=== PATIENT | female | born 1935 | race Caucasian/White ===

== ENCOUNTER 2016-10-03 18:15 | Emergency (ER) | payer MEDICARE, BC ==
[~2016-10-03] VITALS: Ht 162.6 cm; Wt 63.5 kg
[2016-10-03] MEDS ORDERED: ACETAMINOPHEN 325 MG TAB PO ONE (18:45)
[2016-10-03 19:15] LABS: Basophils # (auto) 0 uL; Basophils % (auto) 0.3 % (0.0-2.0); CONDITION Y; Eosinophils # (auto) 0.3 uL; Eosinophils % (auto) 1.9 % (0.0-7.0); Hematocrit 33.8 % (36.0-46.0); Lymphocytes # (auto) 2.2 uL; Lymphocytes % (auto) 16.2 % (10.0-50.0); Mean Corpuscular Hemoglobin 31.9 pg (28.0-32.0); Mean Corpuscular Hgb Conc. 32.5 g/dL (32.0-36.0); Mean Corpuscular Volume 98.2 fL (80.0-100.0); Monocytes # (auto) 1.2 uL; Monocytes % (auto) 9.2 % (0.0-12.0); Neutrophils # (auto) 9.6 uL; Neutrophils % (auto) 72.4 % (37.0-80.0); Platelet Count (auto) 307 10^3/uL (140-450); Red Cell Distribution Width 14.4 % (11.6-16.0); SUSPECT SEE PRINTOUT; White Blood Cell 13.2 10^3/uL (4.4-10.8)
[2016-10-03 19:29] LABS: INR 0.92 (0.9-1.15); Partial Thromboplastin Time 29.9 sec (22.64-33.71)
[2016-10-03 19:37] LABS: Albumin 2.8 g/dL (3.4-5.0); BUN/Creatinine Ratio 34.5; Calcium 8.2 mg/dL (8.5-10.1)
[2016-10-03 19:38] LABS: Lactic Acid w/Reflex 2.5 mmol/L (0.4-2.0)
[2016-10-03 19:44] LABS: Bilirubin, Total 0.5 mg/dL (0.2-1.0); Total Protein 6.9 g/dL (6.4-8.2)
[2016-10-03 19:56] LABS: Potassium 4.1 mmol/L (3.5-5.1)
[2016-10-03] MEDS ORDERED: SODIUM CHLORIDE 0.9% 1,000 ML IV ONE ×2 (20:00→21:00)
[2016-10-03] MEDS ORDERED: cefTRIAXone 1GM/50ML D5W 50 ML IV ONE (20:00)
[2016-10-03 20:11] LABS: REFLEX LACTIC ACID YES OR NO YES
[2016-10-03 20:54] LABS: Urine Bilirubin Negative (Negative); Urine Blood Negative /uL (Negative); Urine Color Yellow (Yellow); Urine Glucose Normal (Normal); Urine Ketone Negative (Negative); Urine Mucus FEW (None Seen); Urine RBC 1 /hpf (0 - 4); Urine Squamous Epithelial Cell FEW /hpf (<5); Urine Urobilinogen Normal (Negative)
[2016-10-03 20:55] LABS: Urine Nitrite POSITIVE (Negative)
[2016-10-03 23:41] VITALS: BP 150/50
== END 2016-10-03 23:40 | disposition home or self-care (01) ==
LOC: EDBD 18:15 → ER 18:22
DX: N39.0 Urinary tract infection, site not specified (principal); R33.9 Retention of urine, unspecified; G82.20 Paraplegia, unspecified; I50.9 Heart failure, unspecified; E11.9 Type 2 diabetes mellitus without complications; I11.0 Hypertensive heart disease with heart failure; I25.2 Old myocardial infarction; E78.5 Hyperlipidemia, unspecified; Z90.49 Acquired absence of other specified parts of digestive tract; Z90.710 Acquired absence of both cervix and uterus
CPT/HCPCS: 36415; 51702; 71010; 80053; 81001; 83605; 84484; 85025; 85610; 85730; 87040; 96365; 99285; J0696; J7030

== ENCOUNTER 2017-11-14 11:47 | Inpatient (IN) | payer MEDICARE, BC ==
[2017-11-14] VITALS (21 sets, daily range): BP systolic 118–158; BP diastolic 61–87
[~2017-11-14] VITALS: Ht 162.6 cm; Wt 64.0 kg
[2017-11-14] MEDS ORDERED: SUCCINYLCHOLINE CHLORIDE 20 MG/ML 10ML VIAL IV ONE ×2 (12:45)
[2017-11-14] MEDS ORDERED: ETOMIDATE (2MG/ML) 20ML VIAL IV ONE ×2 (12:45)
[2017-11-14] MEDS ORDERED: MIDAZOLAM DRIP 50 mg/50mL 50 ML IV ONE (12:58)
[2017-11-14] MEDS: MIDAZOLAM DRIP 50 mg/50mL 50 ML IV SCH (13:06)
[2017-11-14] MEDS ORDERED: NOREPINEPHRINE 8 MG/250ML KIT 250 ML IV ONE (13:11)
[2017-11-14] MEDS: NOREPINEPHRINE 8 MG/250ML KIT 250 ML IV SCH ×2 (13:34→22:54)
[2017-11-14 13:54] LABS: Basophils # (auto) 0.1 uL; Basophils % (auto) 0.7 % (0.0-2.0); Eosinophils # (auto) 0.1 uL; Eosinophils % (auto) 0.4 % (0.0-7.0); Hematocrit 41.5 % (36.0-46.0); Hemoglobin 12.8 g/dL (12.2-16.2); Lymphocytes # (auto) 0.8 uL; Lymphocytes % (auto) 5.1 % (10.0-50.0); Mean Corpuscular Hemoglobin 31.6 pg (28.0-32.0); Mean Corpuscular Hgb Conc. 30.9 g/dL (32.0-36.0); Monocytes # (auto) 1.5 uL; Monocytes % (auto) 9.8 % (0.0-12.0); Neutrophils # (auto) 12.7 uL; Nucleated Red Blood Cells % 0.1 %; Platelet Count (auto) 337 10^3/uL (140-450); Red Blood Cells 4.06 10^6/uL (4.0-5.20); Red Cell Distribution Width 14.8 % (11.8-14.3); White Blood Cell 15.1 10^3/uL (4.4-10.8)
[2017-11-14 13:55] LABS: Mean Corpuscular Volume 101.7 fL (80.0-100.0)
[2017-11-14 13:57] LABS: INR 0.89 (0.9-1.15); Partial Thromboplastin Time 30.1 sec (23.78-33.04); Prothrombin Time 9.6 sec (9.27-12.13)
[2017-11-14 14:27] LABS: Magnesium 2.7 mg/dL (1.6-2.6)
[2017-11-14] MEDS ORDERED: ENOXAPARIN SOD 60 MG/0.6 ML SYRINGE SC ONE (14:30)
[2017-11-14 15:57] LABS: Albumin 2.3 g/dL (3.4-5.0); BUN/Creatinine Ratio 31.3; Bilirubin, Total 0.6 mg/dL (0.2-1.0); Calcium 8.2 mg/dL (8.5-10.1); Lactic Acid w/Reflex 4.3 mmol/L (0.4-2.0); Potassium 5.1 mmol/L (3.5-5.1); Total Protein 7.3 g/dL (6.4-8.2)
[2017-11-14 16:41] LABS: Urine Bacteria MOD /hpf (None Seen); Urine Blood 2+ /uL (Negative); Urine Mucus FEW (None Seen); Urine Specific Gravity 1.019 (1.001-1.035); Urine WBC 1050 /hpf (0 - 5); Urine WBC Clumps PRESENT /hpf (None Seen)
[2017-11-14] MEDS ORDERED: NITROGLYCERIN 0.4 MG SL TAB SL PRN (17:45)
[2017-11-14] MEDS ORDERED: MORPHINE SULFATE 4 MG/ML SYR/VIAL IV PRN (17:45)
[2017-11-14] MEDS ORDERED: SODIUM CHLORIDE 0.9% 1,000 ML IV ONE ×2 (17:45)
[2017-11-14] MEDS ORDERED: ACETAMINOPHEN 650 MG RECT SUPP PR PRN (17:45)
[2017-11-14] MEDS: cefTRIAXone 1GM/10ml IVPUSH 10 ML IV SCH (18:40)
[2017-11-14] MEDS: VANCOMYCIN 750 MG in D5W 5% 250 ML IV SCH (22:32)
[2017-11-15] VITALS (108 sets, daily range): BP systolic 77–159; BP diastolic 36–78
[2017-11-15] MEDS: MIDAZOLAM DRIP 50 mg/50mL 50 ML IV SCH ×4 (00:05→20:17)
[2017-11-15] MEDS: SODIUM CHLORIDE 0.9% 1,000 ML IV SCH ×2 (01:30→12:00)
[2017-11-15 03:57] LABS: Basophils # (auto) 0.1 uL; Basophils % (auto) 0.4 % (0.0-2.0); Eosinophils # (auto) 0 uL; Eosinophils % (auto) 0.1 % (0.0-7.0); Hematocrit 35.7 % (36.0-46.0); Hemoglobin 11.3 g/dL (12.2-16.2); Lymphocytes # (auto) 2.7 uL; Lymphocytes % (auto) 19.8 % (10.0-50.0); Mean Corpuscular Hemoglobin 31.1 pg (28.0-32.0); Mean Corpuscular Hgb Conc. 31.6 g/dL (32.0-36.0); Mean Corpuscular Volume 98.5 fL (80.0-100.0); Monocytes # (auto) 1.9 uL; Monocytes % (auto) 14.2 % (0.0-12.0); Neutrophils # (auto) 8.9 uL; Neutrophils % (auto) 65.5 % (37.0-80.0); Platelet Count (auto) 315 10^3/uL (140-450); Red Blood Cells 3.63 10^6/uL (4.0-5.20); Red Cell Distribution Width 14.5 % (11.8-14.3); White Blood Cell 13.5 10^3/uL (4.4-10.8)
[2017-11-15 04:16] LABS: Albumin 2.1 g/dL (3.4-5.0); Calcium 7.9 mg/dL (8.5-10.1); Potassium 4.2 mmol/L (3.5-5.1)
[2017-11-15 04:19] LABS: Bilirubin, Total 0.7 mg/dL (0.2-1.0); Lactic Acid w/Reflex 4.8 mmol/L (0.4-2.0); Total Protein 6.2 g/dL (6.4-8.2)
[2017-11-15] MEDS ORDERED: VANCOMYCIN PER PHARMACY 0 MG IV SCH ×2 (10:00→19:00)
[2017-11-15] MEDS ORDERED: SODIUM CHLORIDE 0.9% 500 ML IV ONE ×2 (10:15→19:45)
[2017-11-15] MEDS: cefTRIAXone 1GM/10ml IVPUSH 10 ML IV SCH (10:50)
[2017-11-15] MEDS: AZITHROMYCIN 200 MG/5 ML ORAL SUSP GT SCH (13:54)
[2017-11-15] MEDS: VANCOMYCIN 750 MG in D5W 5% 250 ML IV SCH (20:44)
[2017-11-16] VITALS (75 sets, daily range): BP systolic 107–171; BP diastolic 43–96
[2017-11-16 04:04] LABS: Basophils # (auto) 0.1 uL; Basophils % (auto) 0.8 % (0.0-2.0); Eosinophils # (auto) 0.4 uL; Eosinophils % (auto) 3.4 % (0.0-7.0); Hematocrit 33.3 % (36.0-46.0); Hemoglobin 10.5 g/dL (12.2-16.2); Lymphocytes # (auto) 1.9 uL; Mean Corpuscular Hemoglobin 30.6 pg (28.0-32.0); Mean Corpuscular Hgb Conc. 31.6 g/dL (32.0-36.0); Monocytes # (auto) 1.5 uL; Monocytes % (auto) 14.3 % (0.0-12.0); Neutrophils # (auto) 6.7 uL; Neutrophils % (auto) 63.5 % (37.0-80.0); Nucleated Red Blood Cells % 0.1 %; Platelet Count (auto) 317 10^3/uL (140-450); Red Blood Cells 3.43 10^6/uL (4.0-5.20); Red Cell Distribution Width 14.6 % (11.8-14.3); White Blood Cell 10.5 10^3/uL (4.4-10.8)
[2017-11-16 04:20] LABS: Calcium 7.5 mg/dL (8.5-10.1); Potassium 3.8 mmol/L (3.5-5.1)
[2017-11-16 04:23] LABS: Albumin 1.7 g/dL (3.4-5.0); BUN/Creatinine Ratio 43.6
[2017-11-16 04:26] LABS: Bilirubin, Total 0.4 mg/dL (0.2-1.0); Total Protein 5.7 g/dL (6.4-8.2)
[2017-11-16] MEDS: MIDAZOLAM DRIP 50 mg/50mL 50 ML IV SCH (06:25)
[2017-11-16] MEDS: cefTRIAXone 1GM/10ml IVPUSH 10 ML IV SCH (09:30)
[2017-11-16] MEDS: SODIUM CHLORIDE 0.9% 1,000 ML IV SCH ×3 (09:30→20:35)
[2017-11-16] MEDS: NOREPINEPHRINE 8 MG/250ML KIT 250 ML IV SCH (09:30)
[2017-11-16] MEDS: AZITHROMYCIN 200 MG/5 ML ORAL SUSP GT SCH (10:30)
[2017-11-16] MEDS ORDERED: MIDAZOLAM HCL 1MG/1ML-2 ML VIAL IV PRN (10:45)
[2017-11-16 12:17] LABS: Lactic Acid w/Reflex 3.8 mmol/L (0.4-2.0)
[2017-11-16] MEDS ORDERED: FUROSEMIDE 20 MG/2 ML VIAL IV ONE (14:00)
[2017-11-16] MEDS: VANCOMYCIN 750 MG in D5W 5% 250 ML IV SCH (20:14)
[2017-11-17] VITALS (83 sets, daily range): BP systolic 92–215; BP diastolic 34–104
[2017-11-17 03:47] LABS: Basophils # (auto) 0 uL; Basophils % (auto) 0.3 % (0.0-2.0); Eosinophils # (auto) 0.6 uL; Eosinophils % (auto) 4.8 % (0.0-7.0); Hematocrit 34.3 % (36.0-46.0); Lymphocytes # (auto) 2.6 uL; Lymphocytes % (auto) 22.2 % (10.0-50.0); Mean Corpuscular Hemoglobin 30.8 pg (28.0-32.0); Mean Corpuscular Hgb Conc. 32.1 g/dL (32.0-36.0); Mean Corpuscular Volume 95.9 fL (80.0-100.0); Monocytes # (auto) 1.5 uL; Monocytes % (auto) 12.9 % (0.0-12.0); Neutrophils # (auto) 7.1 uL; Neutrophils % (auto) 59.8 % (37.0-80.0); Platelet Count (auto) 331 10^3/uL (140-450); Red Blood Cells 3.58 10^6/uL (4.0-5.20); Red Cell Distribution Width 14.3 % (11.8-14.3); White Blood Cell 11.9 10^3/uL (4.4-10.8)
[2017-11-17 04:08] LABS: Albumin 1.9 g/dL (3.4-5.0); Calcium 7.7 mg/dL (8.5-10.1); Potassium 3.3 mmol/L (3.5-5.1)
[2017-11-17 04:12] LABS: Bilirubin, Total 0.5 mg/dL (0.2-1.0); Total Protein 5.9 g/dL (6.4-8.2)
[2017-11-17] MEDS ORDERED: POTASSIUM EFFERVESENT TAB 25 MEQ GT ONE (05:30)
[2017-11-17] MEDS: cefTRIAXone 1GM/10ml IVPUSH 10 ML IV SCH (10:00)
[2017-11-17] MEDS: AZITHROMYCIN 200 MG/5 ML ORAL SUSP GT SCH (10:00)
[2017-11-17] MEDS: NOREPINEPHRINE 8 MG/250ML KIT 250 ML IV SCH (13:30)
[2017-11-17] MEDS: MIDAZOLAM DRIP 50 mg/50mL 50 ML IV SCH (13:36)
[2017-11-17] MEDS: POTASSIUM CHL 20MEQ/100ML 100 ML IV SCH ×2 (13:45→15:45)
[2017-11-17] MEDS: VANCOMYCIN 750 MG in D5W 5% 250 ML IV SCH (19:40)
[2017-11-18] VITALS (32 sets, daily range): BP systolic 98–187; BP diastolic 43–100
[2017-11-18 04:53] LABS: Basophils # (auto) 0 uL; Basophils % (auto) 0.4 % (0.0-2.0); Eosinophils # (auto) 0.5 uL; Eosinophils % (auto) 4.8 % (0.0-7.0); Hematocrit 34.2 % (36.0-46.0); Hemoglobin 10.9 g/dL (12.2-16.2); Lymphocytes % (auto) 21.3 % (10.0-50.0); Mean Corpuscular Hemoglobin 31.6 pg (28.0-32.0); Mean Corpuscular Volume 98.9 fL (80.0-100.0); Monocytes # (auto) 1.4 uL; Monocytes % (auto) 14.5 % (0.0-12.0); Neutrophils # (auto) 5.6 uL; Nucleated Red Blood Cells % 0.1 %; Platelet Count (auto) 344 10^3/uL (140-450); Red Blood Cells 3.46 10^6/uL (4.0-5.20); Red Cell Distribution Width 14.5 % (11.8-14.3); White Blood Cell 9.5 10^3/uL (4.4-10.8)
[2017-11-18 05:12] LABS: Albumin 1.9 g/dL (3.4-5.0); Bilirubin, Total 0.3 mg/dL (0.2-1.0); Calcium 7.8 mg/dL (8.5-10.1); Potassium 4.1 mmol/L (3.5-5.1); Total Protein 5.8 g/dL (6.4-8.2)
[2017-11-18] MEDS: LABETALOL HCL 5 MG/ML ML 20ML VIAL IV PRN ×2 (08:35→16:36)
[2017-11-18] MEDS: GABAPENTIN 300 MG CAP PO SCH ×2 (10:15→22:57)
[2017-11-18] MEDS: cefTRIAXone 1GM/10ml IVPUSH 10 ML IV SCH (10:15)
[2017-11-18] MEDS: AZITHROMYCIN 200 MG/5 ML ORAL SUSP GT SCH (10:16)
[2017-11-18] MEDS: SODIUM CHLORIDE 0.9% 1,000 ML IV SCH (12:45)
[2017-11-18] MEDS: NOREPINEPHRINE 8 MG/250ML KIT 250 ML IV SCH (13:21)
[2017-11-18] MEDS: MIDAZOLAM DRIP 50 mg/50mL 50 ML IV SCH (13:22)
[2017-11-18] MEDS: VANCOMYCIN 750 MG in D5W 5% 250 ML IV SCH (13:37)
[2017-11-18] MEDS ORDERED: ASPI81TA27 PO (15:34)
[2017-11-18] MEDS ORDERED: GABA300C10 PO (15:34)
[2017-11-18] MEDS ORDERED: ATEN-60 PO (15:34)
[2017-11-18] MEDS ORDERED: LEVO25TA6 PO (15:34)
[2017-11-18] MEDS: HYDROcodone-ACET 5/325MG TAB PO PRN (16:33)
[2017-11-19] VITALS (30 sets, daily range): BP systolic 55–192; BP diastolic 32–88
[2017-11-19] MEDS: LABETALOL HCL 5 MG/ML ML 20ML VIAL IV PRN ×4 (00:20→15:57)
[2017-11-19] MEDS: SODIUM CHLORIDE 0.9% 1,000 ML IV SCH (02:14)
[2017-11-19] MEDS: HYDROcodone-ACET 5/325MG TAB PO PRN ×3 (02:20→13:48)
[2017-11-19 04:51] LABS: Potassium 4.3 mmol/L (3.5-5.1)
[2017-11-19 04:55] LABS: BUN/Creatinine Ratio 25.9; Calcium 8.1 mg/dL (8.5-10.1)
[2017-11-19 04:58] LABS: Bilirubin, Total 0.2 mg/dL (0.2-1.0)
[2017-11-19 05:19] LABS: Hematocrit 33.3 % (36.0-46.0); Hemoglobin 10.7 g/dL (12.2-16.2); Mean Corpuscular Hemoglobin 31.5 pg (28.0-32.0); Mean Corpuscular Hgb Conc. 32.2 g/dL (32.0-36.0); Mean Corpuscular Volume 97.7 fL (80.0-100.0); Platelet Count (auto) 389 10^3/uL (140-450); Red Blood Cells 3.41 10^6/uL (4.0-5.20); Red Cell Distribution Width 14.4 % (11.8-14.3); White Blood Cell 10.1 10^3/uL (4.4-10.8)
[2017-11-19 05:47] LABS: Band Neutrophils % (manual) 0; Basophils % (manual) 0 (0.0-2.0); Blast Cells 0; Metamyelocytes % 0; Myelocytes % 0; Promyelocytes % 0; Reactive Lymphocytes 0
[2017-11-19] MEDS: VANCOMYCIN 750 MG in D5W 5% 250 ML IV SCH (08:00)
[2017-11-19] MEDS: cefTRIAXone 1GM/10ml IVPUSH 10 ML IV SCH (09:19)
[2017-11-19] MEDS: AZITHROMYCIN 200 MG/5 ML ORAL SUSP GT SCH (09:19)
[2017-11-19] MEDS: GABAPENTIN 300 MG CAP PO SCH ×2 (09:19→22:00)
[2017-11-19 11:32] LABS: Eosinophils % (manual) 8 (0-7); Lymphocytes % (manual) 31 (10.0-50.0); Monocytes % (manual) 19 (0-12)
[2017-11-19] MEDS ORDERED: Glucerna Carbsteady SHAKE Vanilla 8oz PO SCH (12:00)
[2017-11-19] MEDS: ENSURE CLEAR Mixed Berry 8oz Carton PO SCH ×3 (12:00→22:00)
[2017-11-19] MEDS ORDERED: LISINOPRIL 10 MG TAB ONE (13:27)
[2017-11-19] MEDS ORDERED: ATENOLOL 25 MG TAB ONE (13:27)
[2017-11-19] MEDS: NOREPINEPHRINE 8 MG/250ML KIT 250 ML IV SCH (13:30)
[2017-11-19] MEDS: ATENOLOL 25 MG TAB PO SCH ×2 (13:44→22:00)
[2017-11-19] MEDS ORDERED: ACETYLCYSTEINE 10 %(100MG/ML) SOL 4ML NEB ONE (14:45)
[2017-11-19] MEDS ORDERED: ALBUTEROL SULF 2.5 MG/0.5ML(0.5%) NEB SOLN NEB ONE (14:45)
[2017-11-19] MEDS ORDERED: IPRATROPIUM BROM 0.5 MG/2.5ML INH SOL NEB ONE (14:45)
[2017-11-19] MEDS ORDERED: FUROSEMIDE 20 MG/2 ML VIAL ONE (16:27)
[2017-11-19] MEDS ORDERED: FUROSEMIDE 20 MG/2 ML VIAL IV ONE (16:30)
[2017-11-19] MEDS ORDERED: ETOMIDATE (2MG/ML) 20ML VIAL IV ONE (17:57)
[2017-11-19] MEDS: MIDAZOLAM DRIP 50 mg/50mL 50 ML IV SCH ×2 (18:00→23:00)
[2017-11-19] MEDS ORDERED: MIDAZOLAM DRIP 50 mg/50mL 50 ML IV ONE (18:01)
[2017-11-19] MEDS ORDERED: LORazepam 2MG/ML-1ML VIAL IV PRN (18:15)
[2017-11-19] MEDS ORDERED: NOREPINEPHRINE 8 MG/250ML KIT 250 ML IV ONE (18:33)
[2017-11-19] MEDS ORDERED: ATROPINE SULF 1 MG/10ml SYR ONE (18:47)
[2017-11-19 19:59] LABS: Basophils # (auto) 0 uL; Basophils % (auto) 0.3 % (0.0-2.0); Eosinophils # (auto) 0 uL; Eosinophils % (auto) 0.2 % (0.0-7.0); Hematocrit 37.4 % (36.0-46.0); Hemoglobin 11.8 g/dL (12.2-16.2); Lymphocytes # (auto) 0.4 uL; Lymphocytes % (auto) 5.1 % (10.0-50.0); Mean Corpuscular Hemoglobin 31.8 pg (28.0-32.0); Mean Corpuscular Hgb Conc. 31.6 g/dL (32.0-36.0); Mean Corpuscular Volume 100.5 fL (80.0-100.0); Monocytes # (auto) 0.4 uL; Monocytes % (auto) 5.9 % (0.0-12.0); Neutrophils # (auto) 6.6 uL; Neutrophils % (auto) 88.5 % (37.0-80.0); Nucleated Red Blood Cells % 0.1 %; Platelet Count (auto) 413 10^3/uL (140-450); Red Blood Cells 3.72 10^6/uL (4.0-5.20); Red Cell Distribution Width 14.6 % (11.8-14.3); White Blood Cell 7.5 10^3/uL (4.4-10.8)
[2017-11-19 20:14] LABS: Calcium 8.3 mg/dL (8.5-10.1)
[2017-11-19] MEDS: ALBUTEROL SULF 2.5 MG/0.5ML(0.5%) NEB SOLN NEB SCH ×2 (20:15→22:29)
[2017-11-19] MEDS: IPRATROPIUM BROM 0.5 MG/2.5ML INH SOL NEB SCH ×2 (20:15→22:29)
[2017-11-19] MEDS: ACETYLCYSTEINE 10 %(100MG/ML) SOL 4ML NEB SCH ×2 (20:15→22:29)
[2017-11-19 20:17] LABS: INR 0.93 (0.9-1.15); Partial Thromboplastin Time 29.4 sec (23.78-33.04)
[2017-11-19 20:22] LABS: Potassium 4.9 mmol/L (3.5-5.1)
[2017-11-20] VITALS (52 sets, daily range): BP systolic 82–165; BP diastolic 39–78
[2017-11-20] MEDS: ACETYLCYSTEINE 10 %(100MG/ML) SOL 4ML NEB SCH ×6 (02:13→22:17)
[2017-11-20] MEDS: IPRATROPIUM BROM 0.5 MG/2.5ML INH SOL NEB SCH ×7 (02:13→22:17)
[2017-11-20] MEDS: ALBUTEROL SULF 2.5 MG/0.5ML(0.5%) NEB SOLN NEB SCH ×6 (02:13→22:17)
[2017-11-20] MEDS: VANCOMYCIN 750 MG in D5W 5% 250 ML IV SCH (02:21)
[2017-11-20 04:05] LABS: Red Blood Cells 3.43 10^6/uL (4.0-5.20); Red Cell Distribution Width 14.3 % (11.8-14.3); White Blood Cell 12.9 10^3/uL (4.4-10.8)
[2017-11-20 04:09] LABS: Hematocrit 33.5 % (36.0-46.0); Hemoglobin 10.8 g/dL (12.2-16.2); Mean Corpuscular Hemoglobin 31.4 pg (28.0-32.0); Mean Corpuscular Hgb Conc. 32.1 g/dL (32.0-36.0); Mean Corpuscular Volume 97.8 fL (80.0-100.0); Platelet Count (auto) 411 10^3/uL (140-450)
[2017-11-20 04:11] LABS: Basophils % (manual) 0 (0.0-2.0); Blast Cells 0; Metamyelocytes % 0; Promyelocytes % 0; Reactive Lymphocytes 0
[2017-11-20 04:18] LABS: Calcium 8.4 mg/dL (8.5-10.1); Potassium 4.3 mmol/L (3.5-5.1)
[2017-11-20 04:21] LABS: BUN/Creatinine Ratio 13.2
[2017-11-20 04:33] LABS: Band Neutrophils % (manual) 3; Eosinophils % (manual) 1 (0-7); Lymphocytes % (manual) 24 (10.0-50.0); Monocytes % (manual) 17 (0-12); Myelocytes % 2
[2017-11-20] MEDS: ENSURE CLEAR Mixed Berry 8oz Carton PO SCH ×2 (06:00→10:11)
[2017-11-20] MEDS ORDERED: NOREPINEPHRINE 8 MG/250ML KIT 250 ML IV ONE (07:45)
[2017-11-20] MEDS: NOREPINEPHRINE 8 MG/250ML KIT 250 ML IV SCH (08:00)
[2017-11-20] MEDS: MIDAZOLAM DRIP 50 mg/50mL 50 ML IV SCH ×2 (08:05→21:43)
[2017-11-20] MEDS ORDERED: LISINOPRIL 10 MG TAB PO SCH (10:00)
[2017-11-20] MEDS: GABAPENTIN 300 MG CAP PO SCH (10:00)
[2017-11-20] MEDS: ATENOLOL 25 MG TAB PO SCH (10:00)
[2017-11-20] MEDS: PANTOPRAZOLE 40 MG/10 ML VIAL IV SCH (10:10)
[2017-11-20] MEDS: cefTRIAXone 1GM/10ml IVPUSH 10 ML IV SCH (10:10)
[2017-11-20] MEDS: AZITHROMYCIN 200 MG/5 ML ORAL SUSP GT SCH (10:11)
[2017-11-20] MEDS ORDERED: Replete/Fiber/Ultrapak 1 Liter GT SCH (10:15)
[2017-11-20] MEDS ORDERED: ENOXAPARIN SOD 40 MG/0.4 ML SYRINGE SC ONE (10:15)
[2017-11-20] MEDS: SODIUM CHLORIDE 0.9% 1,000 ML IV SCH (11:00)
[2017-11-20] MEDS ORDERED: LIDOCAINE 1% (LOCAL ANESTH.) PF 5ml SDV ID ONE (14:45)
[2017-11-20] MEDS: SODIUM CHLOR 0.9% PF (SALINE LOCK) 10ML VIAL/SYR IV SCH (22:00)
[2017-11-21] VITALS (78 sets, daily range): BP systolic 76–165; BP diastolic 34–74
[2017-11-21] MEDS: MIDAZOLAM DRIP 50 mg/50mL 50 ML IV SCH ×2 (01:30→04:00)
[2017-11-21] MEDS: VANCOMYCIN 1GM/250ML 250 ML IV SCH (02:00)
[2017-11-21] MEDS: IPRATROPIUM BROM 0.5 MG/2.5ML INH SOL NEB SCH ×6 (02:13→22:19)
[2017-11-21] MEDS: ALBUTEROL SULF 2.5 MG/0.5ML(0.5%) NEB SOLN NEB SCH ×6 (02:13→22:19)
[2017-11-21] MEDS: ACETYLCYSTEINE 10 %(100MG/ML) SOL 4ML NEB SCH ×6 (02:13→22:19)
[2017-11-21 03:56] LABS: Basophils # (auto) 0.2 uL; Basophils % (auto) 1.4 % (0.0-2.0); Eosinophils # (auto) 0.5 uL; Hematocrit 31.9 % (36.0-46.0); Hemoglobin 10.3 g/dL (12.2-16.2); Lymphocytes # (auto) 3.2 uL; Lymphocytes % (auto) 26.1 % (10.0-50.0); Mean Corpuscular Hgb Conc. 32.4 g/dL (32.0-36.0); Mean Corpuscular Volume 95.7 fL (80.0-100.0); Monocytes # (auto) 1.8 uL; Monocytes % (auto) 15.1 % (0.0-12.0); Neutrophils # (auto) 6.5 uL; Neutrophils % (auto) 53.4 % (37.0-80.0); Nucleated Red Blood Cells % 0.2 %; Platelet Count (auto) 445 10^3/uL (140-450); Red Blood Cells 3.33 10^6/uL (4.0-5.20); Red Cell Distribution Width 14.3 % (11.8-14.3); White Blood Cell 12.2 10^3/uL (4.4-10.8)
[2017-11-21 04:16] LABS: Albumin 1.7 g/dL (3.4-5.0); Calcium 7.8 mg/dL (8.5-10.1); Potassium 3.5 mmol/L (3.5-5.1)
[2017-11-21 04:21] LABS: Bilirubin, Total 0.3 mg/dL (0.2-1.0); Total Protein 5.1 g/dL (6.4-8.2)
[2017-11-21] MEDS: SODIUM CHLORIDE 0.9% 1,000 ML IV SCH (06:20)
[2017-11-21] MEDS: NOREPINEPHRINE 8 MG/250ML KIT 250 ML IV SCH (08:15)
[2017-11-21] MEDS ORDERED: LIDOCAINE 1% (LOCAL ANESTH.) PF 5ml SDV ONE (08:48)
[2017-11-21] MEDS ORDERED: Osmolite 1.2 Cal One Liter GT SCH (09:15)
[2017-11-21] MEDS ORDERED: ENOXAPARIN SOD 40 MG/0.4 ML SYRINGE SC SCH (10:00)
[2017-11-21] MEDS: SODIUM CHLOR 0.9% PF (SALINE LOCK) 10ML VIAL/SYR IV SCH ×2 (10:00→21:46)
[2017-11-21] MEDS: PIPERACILLIN-TAZOB 3.375GM 100 ML IV SCH ×3 (10:00→21:46)
[2017-11-21] MEDS: Pro-Stat SF 30ml Vanilla GT SCH ×2 (10:00→21:46)
[2017-11-21] MEDS: PANTOPRAZOLE 40 MG/10 ML VIAL IV SCH (10:00)
[2017-11-21 10:43] LABS: Basophils # (auto) 0.1 uL; Basophils % (auto) 0.5 % (0.0-2.0); Eosinophils # (auto) 0.4 uL; Eosinophils % (auto) 4.1 % (0.0-7.0); Hematocrit 30.7 % (36.0-46.0); Lymphocytes # (auto) 2.3 uL; Lymphocytes % (auto) 20.9 % (10.0-50.0); Mean Corpuscular Hemoglobin 31.1 pg (28.0-32.0); Mean Corpuscular Hgb Conc. 32.6 g/dL (32.0-36.0); Mean Corpuscular Volume 95.3 fL (80.0-100.0); Monocytes # (auto) 1.8 uL; Monocytes % (auto) 17.1 % (0.0-12.0); Neutrophils # (auto) 6.2 uL; Neutrophils % (auto) 57.4 % (37.0-80.0); Platelet Count (auto) 419 10^3/uL (140-450); Red Blood Cells 3.22 10^6/uL (4.0-5.20); Red Cell Distribution Width 14.7 % (11.8-14.3); White Blood Cell 10.8 10^3/uL (4.4-10.8)
[2017-11-22] VITALS (106 sets, daily range): BP systolic 84–153; BP diastolic 33–83
[2017-11-22] MEDS: VANCOMYCIN 1GM/250ML 250 ML IV SCH (01:44)
[2017-11-22] MEDS: ACETYLCYSTEINE 10 %(100MG/ML) SOL 4ML NEB SCH ×6 (02:14→22:37)
[2017-11-22] MEDS: ALBUTEROL SULF 2.5 MG/0.5ML(0.5%) NEB SOLN NEB SCH ×6 (02:14→22:37)
[2017-11-22] MEDS: IPRATROPIUM BROM 0.5 MG/2.5ML INH SOL NEB SCH ×6 (02:14→22:37)
[2017-11-22] MEDS: SODIUM CHLORIDE 0.9% 1,000 ML IV SCH ×2 (03:00→14:09)
[2017-11-22] MEDS: PIPERACILLIN-TAZOB 3.375GM 100 ML IV SCH ×4 (03:50→22:08)
[2017-11-22 03:54] LABS: Albumin 1.7 g/dL (3.4-5.0); BUN/Creatinine Ratio 18.5; Calcium 7.4 mg/dL (8.5-10.1); Potassium 3.2 mmol/L (3.5-5.1)
[2017-11-22 03:55] LABS: Bilirubin, Total 0.4 mg/dL (0.2-1.0); Total Protein 5.2 g/dL (6.4-8.2)
[2017-11-22] MEDS: NOREPINEPHRINE 8 MG/250ML KIT 250 ML IV SCH (08:15)
[2017-11-22] MEDS: PANTOPRAZOLE 40 MG/10 ML VIAL IV SCH (09:56)
[2017-11-22] MEDS: SODIUM CHLOR 0.9% PF (SALINE LOCK) 10ML VIAL/SYR IV SCH ×2 (09:57→22:08)
[2017-11-22] MEDS: Pro-Stat SF 30ml Vanilla GT SCH ×2 (09:57→22:08)
[2017-11-22] MEDS: POTASSIUM CHL 20MEQ/100ML 100 ML IV SCH ×2 (10:38→12:12)
[2017-11-22] MEDS ORDERED: MIDAZOLAM HCL 1MG/1ML-2 ML VIAL IV PRN (14:00)
[2017-11-22] MEDS: MIDAZOLAM HCL 1MG/1ML-2 ML VIAL IV PRN ×2 (14:00→18:38)
[2017-11-22] MEDS: MIDAZOLAM DRIP 50 mg/50mL 50 ML IV SCH (18:00)
[2017-11-22] MEDS: fentaNYL Drip 2500mCg/250mlNS 250 ML IV SCH (18:31)
[2017-11-23] VITALS (105 sets, daily range): BP systolic 91–168; BP diastolic 37–93
[2017-11-23] MEDS: VANCOMYCIN 1GM/250ML 250 ML IV SCH (01:45)
[2017-11-23] MEDS: ALBUTEROL SULF 2.5 MG/0.5ML(0.5%) NEB SOLN NEB SCH ×6 (02:04→22:09)
[2017-11-23] MEDS: IPRATROPIUM BROM 0.5 MG/2.5ML INH SOL NEB SCH ×6 (02:04→22:09)
[2017-11-23] MEDS: ACETYLCYSTEINE 10 %(100MG/ML) SOL 4ML NEB SCH ×6 (02:04→22:09)
[2017-11-23 03:57] LABS: Basophils # (auto) 0.1 uL; Basophils % (auto) 0.9 % (0.0-2.0); Eosinophils # (auto) 0.8 uL; Eosinophils % (auto) 6.1 % (0.0-7.0); Hemoglobin 9.2 g/dL (12.2-16.2); Lymphocytes # (auto) 3.3 uL; Mean Corpuscular Hemoglobin 31.3 pg (28.0-32.0); Mean Corpuscular Hgb Conc. 32.8 g/dL (32.0-36.0); Mean Corpuscular Volume 95.4 fL (80.0-100.0); Monocytes # (auto) 1.9 uL; Monocytes % (auto) 15.5 % (0.0-12.0); Neutrophils # (auto) 6.2 uL; Neutrophils % (auto) 50.5 % (37.0-80.0); Nucleated Red Blood Cells % 0.1 %; Platelet Count (auto) 439 10^3/uL (140-450); Red Blood Cells 2.94 10^6/uL (4.0-5.20); Red Cell Distribution Width 14.3 % (11.8-14.3); White Blood Cell 12.3 10^3/uL (4.4-10.8)
[2017-11-23 04:23] LABS: Albumin 1.7 g/dL (3.4-5.0); BUN/Creatinine Ratio 21.4; Bilirubin, Total 0.5 mg/dL (0.2-1.0); Calcium 7.2 mg/dL (8.5-10.1); Potassium 3.4 mmol/L (3.5-5.1); Total Protein 5.3 g/dL (6.4-8.2)
[2017-11-23] MEDS: PIPERACILLIN-TAZOB 3.375GM 100 ML IV SCH ×4 (04:48→21:47)
[2017-11-23] MEDS ORDERED: POTASSIUM CHL 20MEQ/100ML 100 ML IV ONE (10:00)
[2017-11-23] MEDS: Pro-Stat SF 30ml Vanilla GT SCH ×2 (11:00→21:48)
[2017-11-23] MEDS: NOREPINEPHRINE 8 MG/250ML KIT 250 ML IV SCH (11:00)
[2017-11-23] MEDS: SODIUM CHLOR 0.9% PF (SALINE LOCK) 10ML VIAL/SYR IV SCH ×2 (11:00→21:47)
[2017-11-23] MEDS: PANTOPRAZOLE 40 MG/10 ML VIAL IV SCH (11:00)
[2017-11-23] MEDS ORDERED: LIDOCAINE 2% (LOCAL ANESTH.) PF 5ml SDV ONE (13:04)
[2017-11-23] MEDS ORDERED: HYDROmorphone HCL 2 MG/ML VL ONE (13:05)
[2017-11-23] MEDS ORDERED: EPINEPHrine HCL 1 MG/1 ML AMP ONE (13:05)
[2017-11-23] MEDS ORDERED: MIDAZOLAM HCL 5 MG/ML-1ML VIAL ONE ×2 (13:06→16:11)
[2017-11-23] MEDS ORDERED: GLYCOPYRROLATE 0.2 MG/ML 1ML VIAL ONE (13:06)
[2017-11-23] MEDS ORDERED: LIDOCAINE HCL 2% TOP JELLY 5ML TOP ONE (13:06)
[2017-11-23] MEDS ORDERED: NALOXONE HCL 0.4 MG/ML VIAL ONE (13:11)
[2017-11-23] MEDS ORDERED: FLUMAZENIL 0.1 MG/ML INJ 10ML MDV IV ONE (13:11)
[2017-11-23] MEDS: MIDAZOLAM DRIP 50 mg/50mL 50 ML IV SCH (18:00)
[2017-11-23] MEDS: fentaNYL Drip 2500mCg/250mlNS 250 ML IV SCH ×2 (18:07→21:53)
[2017-11-23] MEDS: SODIUM CHLORIDE 0.9% 1,000 ML IV SCH (20:27)
[2017-11-24] VITALS (85 sets, daily range): BP systolic 92–220; BP diastolic 37–131
[2017-11-24] MEDS: VANCOMYCIN 1GM/250ML 250 ML IV SCH (01:35)
[2017-11-24] MEDS: ACETYLCYSTEINE 10 %(100MG/ML) SOL 4ML NEB SCH ×6 (02:22→22:35)
[2017-11-24] MEDS: ALBUTEROL SULF 2.5 MG/0.5ML(0.5%) NEB SOLN NEB SCH ×6 (02:22→22:35)
[2017-11-24] MEDS: IPRATROPIUM BROM 0.5 MG/2.5ML INH SOL NEB SCH ×6 (02:22→22:35)
[2017-11-24] MEDS: PIPERACILLIN-TAZOB 3.375GM 100 ML IV SCH ×4 (04:04→21:46)
[2017-11-24 04:12] LABS: Hemoglobin 10.3 g/dL (12.2-16.2); Lymphocytes # (auto) 2.7 uL; Mean Corpuscular Volume 96.9 fL (80.0-100.0); Red Cell Distribution Width 14.6 % (11.8-14.3)
[2017-11-24 04:18] LABS: Basophils # (auto) 0.2 uL; Basophils % (auto) 1.3 % (0.0-2.0); Eosinophils % (auto) 7.8 % (0.0-7.0); Hematocrit 31.5 % (36.0-46.0); Lymphocytes % (auto) 22.1 % (10.0-50.0); Mean Corpuscular Hemoglobin 31.6 pg (28.0-32.0); Mean Corpuscular Hgb Conc. 32.6 g/dL (32.0-36.0); Monocytes # (auto) 1.6 uL; Monocytes % (auto) 13.2 % (0.0-12.0); Neutrophils # (auto) 6.8 uL; Neutrophils % (auto) 55.6 % (37.0-80.0); Platelet Count (auto) 508 10^3/uL (140-450); Red Blood Cells 3.25 10^6/uL (4.0-5.20); White Blood Cell 12.3 10^3/uL (4.4-10.8)
[2017-11-24 04:22] LABS: Albumin 1.9 g/dL (3.4-5.0); BUN/Creatinine Ratio 20.4; Calcium 7.7 mg/dL (8.5-10.1); Potassium 3.9 mmol/L (3.5-5.1)
[2017-11-24 04:24] LABS: Bilirubin, Total 0.5 mg/dL (0.2-1.0); Total Protein 5.8 g/dL (6.4-8.2)
[2017-11-24] MEDS: Pro-Stat SF 30ml Vanilla GT SCH ×2 (07:44→21:20)
[2017-11-24] MEDS: NOREPINEPHRINE 8 MG/250ML KIT 250 ML IV SCH (08:15)
[2017-11-24] MEDS: SODIUM CHLOR 0.9% PF (SALINE LOCK) 10ML VIAL/SYR IV SCH ×2 (09:59→22:06)
[2017-11-24] MEDS: PANTOPRAZOLE 40 MG/10 ML VIAL IV SCH (09:59)
[2017-11-24] MEDS ORDERED: FLUCONAZOLE 200MG/100ML 100 ML IV SCH (10:00)
[2017-11-24] MEDS: LABETALOL HCL 5 MG/ML ML 20ML VIAL IV PRN ×4 (13:28→22:06)
[2017-11-24] MEDS ORDERED: ATENOLOL 25 MG TAB PO ONE (14:30)
[2017-11-24] MEDS ORDERED: LISINOPRIL 20 MG TAB PO ONE (14:30)
[2017-11-24] MEDS ORDERED: LEVOTHYROXINE SODIUM 25 MCG TAB PO ONE (14:45)
[2017-11-24] MEDS: SODIUM CHLORIDE 0.9% 1,000 ML IV SCH (15:00)
[2017-11-24] MEDS ORDERED: GABAPENTIN 300 MG CAP PO ONE ×2 (17:30→18:00)
[2017-11-24] MEDS ORDERED: GABA300C10 PO (17:55)
[2017-11-24] MEDS: MIDAZOLAM DRIP 50 mg/50mL 50 ML IV SCH (18:00)
[2017-11-24] MEDS: HYDROcodone-ACET 5/325MG TAB PO PRN (20:46)
[2017-11-24] MEDS ORDERED: GABAPENTIN 300 MG CAP PO SCH (22:00)
[2017-11-24] MEDS: GABAPENTIN 300 MG CAP PO SCH (23:45)
[2017-11-25] VITALS (36 sets, daily range): BP systolic 88–180; BP diastolic 40–100
[2017-11-25] MEDS: VANCOMYCIN 1GM/250ML 250 ML IV SCH (01:24)
[2017-11-25] MEDS: IPRATROPIUM BROM 0.5 MG/2.5ML INH SOL NEB SCH ×6 (02:37→22:04)
[2017-11-25] MEDS: ACETYLCYSTEINE 10 %(100MG/ML) SOL 4ML NEB SCH ×6 (02:37→22:04)
[2017-11-25] MEDS: ALBUTEROL SULF 2.5 MG/0.5ML(0.5%) NEB SOLN NEB SCH ×6 (02:37→22:04)
[2017-11-25] MEDS: PIPERACILLIN-TAZOB 3.375GM 100 ML IV SCH ×4 (03:43→21:30)
[2017-11-25 04:32] LABS: Basophils # (auto) 0.1 uL; Basophils % (auto) 0.5 % (0.0-2.0); Eosinophils # (auto) 0.4 uL; Lymphocytes # (auto) 2.4 uL; Mean Corpuscular Volume 97.7 fL (80.0-100.0); Monocytes # (auto) 1.7 uL; Red Blood Cells 3.11 10^6/uL (4.0-5.20); Red Cell Distribution Width 14.3 % (11.8-14.3)
[2017-11-25 04:34] LABS: Eosinophils % (auto) 3.2 % (0.0-7.0); Hematocrit 30.3 % (36.0-46.0); Hemoglobin 9.8 g/dL (12.2-16.2); Lymphocytes % (auto) 21.1 % (10.0-50.0); Mean Corpuscular Hemoglobin 31.4 pg (28.0-32.0); Mean Corpuscular Hgb Conc. 32.2 g/dL (32.0-36.0); Monocytes % (auto) 14.8 % (0.0-12.0); Neutrophils % (auto) 60.4 % (37.0-80.0); Platelet Count (auto) 503 10^3/uL (140-450); White Blood Cell 11.6 10^3/uL (4.4-10.8)
[2017-11-25 05:02] LABS: Albumin 1.7 g/dL (3.4-5.0); Bilirubin, Total 0.3 mg/dL (0.2-1.0); Calcium 8.1 mg/dL (8.5-10.1); Potassium 3.4 mmol/L (3.5-5.1); Total Protein 5.4 g/dL (6.4-8.2)
[2017-11-25] MEDS: GABAPENTIN 300 MG CAP PO SCH ×4 (06:12→21:30)
[2017-11-25] MEDS: LEVOTHYROXINE SODIUM 25 MCG TAB PO SCH (06:13)
[2017-11-25] MEDS: NOREPINEPHRINE 8 MG/250ML KIT 250 ML IV SCH (08:15)
[2017-11-25] MEDS: ATENOLOL 25 MG TAB PO SCH (09:00)
[2017-11-25] MEDS: Pro-Stat SF 30ml Vanilla GT SCH ×2 (10:00→21:29)
[2017-11-25] MEDS: SODIUM CHLORIDE 0.9% 1,000 ML IV SCH (11:00)
[2017-11-25] MEDS: PANTOPRAZOLE 40 MG/10 ML VIAL IV SCH (11:56)
[2017-11-25] MEDS: SODIUM CHLOR 0.9% PF (SALINE LOCK) 10ML VIAL/SYR IV SCH ×2 (11:56→21:30)
[2017-11-25] MEDS: LISINOPRIL 20 MG TAB PO SCH (13:02)
[2017-11-25] MEDS: MIDAZOLAM DRIP 50 mg/50mL 50 ML IV SCH (16:24)
[2017-11-25] MEDS: POTASSIUM CHL 20MEQ/100ML 100 ML IV SCH ×2 (16:24→17:15)
[2017-11-25] MEDS: LABETALOL HCL 5 MG/ML ML 20ML VIAL IV PRN (20:02)
[2017-11-26] VITALS (19 sets, daily range): BP systolic 92–166; BP diastolic 32–77
[2017-11-26] MEDS: VANCOMYCIN 1GM/250ML 250 ML IV SCH (01:25)
[2017-11-26] MEDS: ACETYLCYSTEINE 10 %(100MG/ML) SOL 4ML NEB SCH ×6 (02:00→22:35)
[2017-11-26] MEDS: IPRATROPIUM BROM 0.5 MG/2.5ML INH SOL NEB SCH ×6 (02:00→22:35)
[2017-11-26] MEDS: ALBUTEROL SULF 2.5 MG/0.5ML(0.5%) NEB SOLN NEB SCH ×6 (02:00→22:35)
[2017-11-26 02:34] LABS: Basophils # (auto) 0.2 uL; Eosinophils # (auto) 0.4 uL; Eosinophils % (auto) 3.5 % (0.0-7.0); Hemoglobin 9.5 g/dL (12.2-16.2); Lymphocytes # (auto) 2.3 uL; Mean Corpuscular Hemoglobin 30.8 pg (28.0-32.0); Mean Corpuscular Hgb Conc. 31.5 g/dL (32.0-36.0); Red Blood Cells 3.07 10^6/uL (4.0-5.20)
[2017-11-26 02:36] LABS: Basophils % (auto) 1.3 % (0.0-2.0); Lymphocytes % (auto) 18.1 % (10.0-50.0); Mean Corpuscular Volume 97.8 fL (80.0-100.0); Monocytes # (auto) 1.7 uL; Monocytes % (auto) 13.5 % (0.0-12.0); Neutrophils % (auto) 63.6 % (37.0-80.0); Platelet Count (auto) 463 10^3/uL (140-450); Red Cell Distribution Width 14.2 % (11.8-14.3); White Blood Cell 12.7 10^3/uL (4.4-10.8)
[2017-11-26] MEDS: HYDROcodone-ACET 5/325MG TAB PO PRN ×2 (02:50→23:47)
[2017-11-26 02:58] LABS: Albumin 1.7 g/dL (3.4-5.0); Bilirubin, Total 0.2 mg/dL (0.2-1.0); Potassium 4.5 mmol/L (3.5-5.1); Total Protein 5.4 g/dL (6.4-8.2)
[2017-11-26] MEDS: PIPERACILLIN-TAZOB 3.375GM 100 ML IV SCH ×4 (03:44→22:26)
[2017-11-26] MEDS: GABAPENTIN 300 MG CAP PO SCH ×4 (05:55→22:26)
[2017-11-26] MEDS: SODIUM CHLORIDE 0.9% 1,000 ML IV SCH (06:03)
[2017-11-26] MEDS: LEVOTHYROXINE SODIUM 25 MCG TAB PO SCH (06:28)
[2017-11-26] MEDS: NOREPINEPHRINE 8 MG/250ML KIT 250 ML IV SCH (08:15)
[2017-11-26] MEDS: Pro-Stat SF 30ml Vanilla GT SCH ×2 (09:50→22:00)
[2017-11-26] MEDS: PANTOPRAZOLE 40 MG/10 ML VIAL IV SCH (09:50)
[2017-11-26] MEDS: ENOXAPARIN SOD 40 MG/0.4 ML SYRINGE SC SCH (09:50)
[2017-11-26] MEDS: SODIUM CHLOR 0.9% PF (SALINE LOCK) 10ML VIAL/SYR IV SCH ×2 (09:50→22:26)
[2017-11-26] MEDS: ATENOLOL 25 MG TAB PO SCH (11:16)
[2017-11-26] MEDS ORDERED: FLUCONAZOLE 100 MG TAB PO ONE (11:45)
[2017-11-26] MEDS: LISINOPRIL 20 MG TAB PO SCH (11:56)
[2017-11-26] MEDS: LABETALOL HCL 5 MG/ML ML 20ML VIAL IV PRN ×2 (14:25→18:46)
[2017-11-26] MEDS: MIDAZOLAM DRIP 50 mg/50mL 50 ML IV SCH (15:51)
[2017-11-27] VITALS: BP 137/65
[2017-11-27] MEDS: ACETYLCYSTEINE 10 %(100MG/ML) SOL 4ML NEB SCH ×6 (02:00→22:05)
[2017-11-27] MEDS: ALBUTEROL SULF 2.5 MG/0.5ML(0.5%) NEB SOLN NEB SCH ×6 (02:00→22:05)
[2017-11-27] MEDS: IPRATROPIUM BROM 0.5 MG/2.5ML INH SOL NEB SCH ×6 (02:00→22:05)
[2017-11-27] MEDS: PIPERACILLIN-TAZOB 3.375GM 100 ML IV SCH ×4 (03:50→21:23)
[2017-11-27 04:00] VITALS: BP 119/46
[2017-11-27] MEDS: GABAPENTIN 300 MG CAP PO SCH ×4 (06:25→21:23)
[2017-11-27] MEDS: LEVOTHYROXINE SODIUM 25 MCG TAB PO SCH (06:25)
[2017-11-27 08:00] VITALS: BP 145/67
[2017-11-27] MEDS ORDERED: FUROSEMIDE 40 MG/4 ML VIAL IV ONE (09:45)
[2017-11-27] MEDS: Pro-Stat SF 30ml Vanilla GT SCH ×2 (10:00→21:20)
[2017-11-27 11:50] VITALS: BP 143/64
[2017-11-27] MEDS: SODIUM CHLOR 0.9% PF (SALINE LOCK) 10ML VIAL/SYR IV SCH ×2 (12:02→21:20)
[2017-11-27] MEDS: ENOXAPARIN SOD 40 MG/0.4 ML SYRINGE SC SCH (12:02)
[2017-11-27] MEDS: FLUCONAZOLE 100 MG TAB PO SCH (12:03)
[2017-11-27] MEDS: ATENOLOL 25 MG TAB PO SCH (12:03)
[2017-11-27] MEDS: LISINOPRIL 20 MG TAB PO SCH (15:44)
[2017-11-27 15:53] VITALS: BP 145/66
[2017-11-27] MEDS ORDERED: IOHEXOL 350 MG/ML 100ML IJ ONE (18:43)
[2017-11-27 19:46] VITALS: BP 151/65
[2017-11-27] MEDS: HYDROcodone-ACET 5/325MG TAB PO PRN (21:24)
[2017-11-28] VITALS: BP 114/51
[2017-11-28] MEDS: ALBUTEROL SULF 2.5 MG/0.5ML(0.5%) NEB SOLN NEB SCH ×8 (02:29→22:48)
[2017-11-28] MEDS: IPRATROPIUM BROM 0.5 MG/2.5ML INH SOL NEB SCH ×8 (02:29→22:47)
[2017-11-28] MEDS: ACETYLCYSTEINE 10 %(100MG/ML) SOL 4ML NEB SCH ×8 (02:30→22:48)
[2017-11-28] MEDS: PIPERACILLIN-TAZOB 3.375GM 100 ML IV SCH ×4 (04:49→21:35)
[2017-11-28 05:18] LABS: Basophils # (auto) 0.1 uL; Lymphocytes # (auto) 3.1 uL; Monocytes # (auto) 1.7 uL; Neutrophils # (auto) 4.8 uL; Red Cell Distribution Width 14.3 % (11.8-14.3)
[2017-11-28 05:22] LABS: Eosinophils # (auto) 0.3 uL; Hematocrit 29.8 % (36.0-46.0); Hemoglobin 9.7 g/dL (12.2-16.2); Mean Corpuscular Hemoglobin 31.8 pg (28.0-32.0); Mean Corpuscular Hgb Conc. 32.6 g/dL (32.0-36.0); Mean Corpuscular Volume 97.4 fL (80.0-100.0); Platelet Count (auto) 528 10^3/uL (140-450); Red Blood Cells 3.06 10^6/uL (4.0-5.20)
[2017-11-28 05:52] LABS: Albumin 1.9 g/dL (3.4-5.0); Bilirubin, Total 0.3 mg/dL (0.2-1.0); Calcium 8.1 mg/dL (8.5-10.1); Potassium 3.6 mmol/L (3.5-5.1); Total Protein 6.2 g/dL (6.4-8.2)
[2017-11-28] MEDS: GABAPENTIN 300 MG CAP PO SCH ×4 (06:32→21:35)
[2017-11-28] MEDS: LEVOTHYROXINE SODIUM 25 MCG TAB PO SCH (06:32)
[2017-11-28 08:00] VITALS: BP 163/76
[2017-11-28] MEDS: Pro-Stat SF 30ml Vanilla GT SCH ×2 (10:00→21:09)
[2017-11-28] MEDS: ATENOLOL 25 MG TAB PO SCH (10:00)
[2017-11-28] MEDS: FLUCONAZOLE 100 MG TAB PO SCH (10:28)
[2017-11-28] MEDS: ENOXAPARIN SOD 40 MG/0.4 ML SYRINGE SC SCH (10:29)
[2017-11-28] MEDS: LISINOPRIL 20 MG TAB PO SCH (10:29)
[2017-11-28] MEDS ORDERED: POTASSIUM CHL 20 Meq TABLET PO ONE (11:00)
[2017-11-28] MEDS ORDERED: FUROSEMIDE 40 MG TAB PO ONE (11:00)
[2017-11-28] MEDS: SODIUM CHLOR 0.9% PF (SALINE LOCK) 10ML VIAL/SYR IV SCH ×2 (11:55→21:10)
[2017-11-28 12:14] VITALS: BP 121/64
[2017-11-28 12:25] VITALS: BP 121/66
[2017-11-28 16:00] VITALS: BP 157/86
[2017-11-28 20:11] VITALS: BP 161/80
[2017-11-28] MEDS: LABETALOL HCL 5 MG/ML ML 20ML VIAL IV PRN (23:53)
[2017-11-29] VITALS: BP 169/75
[2017-11-29] MEDS: PIPERACILLIN-TAZOB 3.375GM 100 ML IV SCH ×4 (03:32→21:40)
[2017-11-29 04:00] VITALS: BP 148/71
[2017-11-29] MEDS: ALBUTEROL SULF 2.5 MG/0.5ML(0.5%) NEB SOLN NEB SCH ×6 (05:46→22:22)
[2017-11-29] MEDS: ACETYLCYSTEINE 10 %(100MG/ML) SOL 4ML NEB SCH ×6 (05:46→22:22)
[2017-11-29] MEDS: IPRATROPIUM BROM 0.5 MG/2.5ML INH SOL NEB SCH ×6 (05:46→22:22)
[2017-11-29] MEDS: LEVOTHYROXINE SODIUM 25 MCG TAB PO SCH (06:17)
[2017-11-29] MEDS: GABAPENTIN 300 MG CAP PO SCH ×4 (06:17→21:39)
[2017-11-29 08:00] VITALS: BP 137/56
[2017-11-29 08:07] LABS: Calcium 8.2 mg/dL (8.5-10.1); Potassium 3.5 mmol/L (3.5-5.1)
[2017-11-29 08:09] LABS: Bilirubin, Total 0.3 mg/dL (0.2-1.0); Total Protein 6.3 g/dL (6.4-8.2)
[2017-11-29] MEDS: Pro-Stat SF 30ml Vanilla GT SCH ×2 (10:00→21:40)
[2017-11-29] MEDS: LISINOPRIL 20 MG TAB PO SCH (10:00)
[2017-11-29] MEDS: SODIUM CHLOR 0.9% PF (SALINE LOCK) 10ML VIAL/SYR IV SCH ×2 (10:00→21:40)
[2017-11-29] MEDS: ATENOLOL 25 MG TAB PO SCH (10:00)
[2017-11-29] MEDS: ENOXAPARIN SOD 40 MG/0.4 ML SYRINGE SC SCH (10:00)
[2017-11-29 12:00] VITALS: BP 172/87
[2017-11-29] MEDS: POTASSIUM CHL 20 Meq TABLET PO SCH (14:23)
[2017-11-29] MEDS: FLUCONAZOLE 100 MG TAB PO SCH (14:23)
[2017-11-29] MEDS: FUROSEMIDE 40 MG TAB PO SCH (14:25)
[2017-11-29] MEDS: LABETALOL HCL 5 MG/ML ML 20ML VIAL IV PRN (17:09)
[2017-11-29 20:00] VITALS: BP 161/75
[2017-11-29] MEDS: HYDROcodone-ACET 5/325MG TAB PO PRN (21:40)
[2017-11-30 00:02] VITALS: BP 146/62
[2017-11-30 04:00] VITALS: BP 151/65
[2017-11-30] MEDS: PIPERACILLIN-TAZOB 3.375GM 100 ML IV SCH ×4 (04:00→22:13)
[2017-11-30] MEDS: GABAPENTIN 300 MG CAP PO SCH ×4 (06:02→22:13)
[2017-11-30 06:03] LABS: Hematocrit 32.9 % (36.0-46.0); Hemoglobin 10.5 g/dL (12.2-16.2); Mean Corpuscular Hemoglobin 31.1 pg (28.0-32.0); Mean Corpuscular Hgb Conc. 31.9 g/dL (32.0-36.0); Mean Corpuscular Volume 97.3 fL (80.0-100.0); Platelet Count (auto) 544 10^3/uL (140-450); Red Blood Cells 3.39 10^6/uL (4.0-5.20); Red Cell Distribution Width 14.4 % (11.8-14.3); White Blood Cell 9.5 10^3/uL (4.4-10.8)
[2017-11-30 06:20] LABS: Band Neutrophils % (manual) 0; Basophils % (manual) 0 (0.0-2.0); Blast Cells 0; Metamyelocytes % 0; Myelocytes % 0; Promyelocytes % 0; Reactive Lymphocytes 0
[2017-11-30 06:23] LABS: Albumin 2.1 g/dL (3.4-5.0); BUN/Creatinine Ratio 11.9; Bilirubin, Total 0.2 mg/dL (0.2-1.0); Calcium 8.5 mg/dL (8.5-10.1); Potassium 4.1 mmol/L (3.5-5.1); Total Protein 6.8 g/dL (6.4-8.2)
[2017-11-30] MEDS: LEVOTHYROXINE SODIUM 25 MCG TAB PO SCH (06:37)
[2017-11-30] MEDS: IPRATROPIUM BROM 0.5 MG/2.5ML INH SOL NEB SCH ×5 (07:01→22:37)
[2017-11-30] MEDS: ACETYLCYSTEINE 10 %(100MG/ML) SOL 4ML NEB SCH ×5 (07:01→22:37)
[2017-11-30] MEDS: ALBUTEROL SULF 2.5 MG/0.5ML(0.5%) NEB SOLN NEB SCH ×5 (07:01→22:37)
[2017-11-30 08:34] LABS: Eosinophils % (manual) 7 (0-7); Lymphocytes % (manual) 36 (10.0-50.0); Monocytes % (manual) 14 (0-12)
[2017-11-30] MEDS: Pro-Stat SF 30ml Vanilla GT SCH ×2 (10:17→22:00)
[2017-11-30] MEDS: FLUCONAZOLE 100 MG TAB PO SCH (10:33)
[2017-11-30] MEDS: FUROSEMIDE 40 MG TAB PO SCH (10:33)
[2017-11-30] MEDS: POTASSIUM CHL 20 Meq TABLET PO SCH (10:34)
[2017-11-30] MEDS: SODIUM CHLOR 0.9% PF (SALINE LOCK) 10ML VIAL/SYR IV SCH ×2 (10:36→22:13)
[2017-11-30] MEDS: ATENOLOL 25 MG TAB PO SCH (11:52)
[2017-11-30 11:56] VITALS: BP 127/61
[2017-11-30] MEDS: ENOXAPARIN SOD 40 MG/0.4 ML SYRINGE SC SCH (12:28)
[2017-11-30] MEDS: LISINOPRIL 20 MG TAB PO SCH (14:04)
[2017-11-30 15:52] VITALS: BP 127/52
[2017-11-30 19:48] VITALS: BP 104/50
[2017-11-30] MEDS: HYDROcodone-ACET 5/325MG TAB PO PRN (23:06)
[2017-12-01 02:00] VITALS: BP 116/43
[2017-12-01] MEDS: ALBUTEROL SULF 2.5 MG/0.5ML(0.5%) NEB SOLN NEB SCH ×4 (02:00→14:57)
[2017-12-01] MEDS: ACETYLCYSTEINE 10 %(100MG/ML) SOL 4ML NEB SCH ×4 (02:00→14:57)
[2017-12-01] MEDS: IPRATROPIUM BROM 0.5 MG/2.5ML INH SOL NEB SCH ×4 (02:00→14:57)
[2017-12-01] MEDS: PIPERACILLIN-TAZOB 3.375GM 100 ML IV SCH ×3 (04:00→16:00)
[2017-12-01] MEDS: GABAPENTIN 300 MG CAP PO SCH ×2 (06:00→13:44)
[2017-12-01] MEDS: LEVOTHYROXINE SODIUM 25 MCG TAB PO SCH (06:36)
[2017-12-01 08:00] VITALS: BP 108/53
[2017-12-01 08:50] VITALS: BP 116/43
[2017-12-01] MEDS: LISINOPRIL 20 MG TAB PO SCH (10:00)
[2017-12-01] MEDS: ATENOLOL 25 MG TAB PO SCH (10:00)
[2017-12-01] MEDS: FUROSEMIDE 40 MG TAB PO SCH (10:16)
[2017-12-01] MEDS: ENOXAPARIN SOD 40 MG/0.4 ML SYRINGE SC SCH (10:16)
[2017-12-01] MEDS: POTASSIUM CHL 20 Meq TABLET PO SCH (10:17)
[2017-12-01] MEDS: FLUCONAZOLE 100 MG TAB PO SCH (10:17)
[2017-12-01] MEDS: SODIUM CHLOR 0.9% PF (SALINE LOCK) 10ML VIAL/SYR IV SCH (10:30)
[2017-12-01] MEDS: Pro-Stat SF 30ml Vanilla GT SCH (11:00)
[2017-12-01 12:00] VITALS: BP 110/47
[2017-12-01 13:18] VITALS: BP 110/47
[2017-12-01 16:00] VITALS: BP 122/56
[2017-12-01] MEDS: HYDROcodone-ACET 5/325MG TAB PO PRN (16:41)
== END 2017-12-01 17:35 | disposition home or self-care (01) | DRG 870 ==
LOC: EDBD 11:47 → ER 11:47 → OVERFLOW 11:48 → ICU WEST 19:28 → DOU IN ICU 11-18 11:10 → ICU WEST 11-19 18:27 → DOU IN ICU 11-26 17:53
PROVIDERS: ADMIT Internal Medicine; ATTEND Internal Medicine
PROC: 5A1945Z Respiratory Ventilation, 24-96 Consecutive Hours (ICD-10-PCS; 2017-11-14)
PROC: 5A09357 Assistance with Respiratory Ventilation, Less than 24 Consecutive Hours, Continuous Positive Airway Pressure (ICD-10-PCS; 2017-11-19)
PROC: 5A1955Z Respiratory Ventilation, Greater than 96 Consecutive Hours (ICD-10-PCS; principal; 2017-11-20)
PROC: 0BH17EZ Insertion of Endotracheal Airway into Trachea, Via Natural or Artificial Opening (ICD-10-PCS; 2017-11-20)
PROC: 02HV33Z Insertion of Infusion Device into Superior Vena Cava, Percutaneous Approach (ICD-10-PCS; 2017-11-20)
PROC: 0W993ZZ Drainage of Right Pleural Cavity, Percutaneous Approach (ICD-10-PCS; 2017-11-21)
PROC: 0BDB8ZX Extraction of Left Lower Lobe Bronchus, Via Natural or Artificial Opening Endoscopic, Diagnostic (ICD-10-PCS; 2017-11-23)
PROC: 0W993ZZ Drainage of Right Pleural Cavity, Percutaneous Approach (ICD-10-PCS; 2017-11-30)
DX: A41.9 Sepsis, unspecified organism (principal); E43 Unspecified severe protein-calorie malnutrition; J69.0 Pneumonitis due to inhalation of food and vomit; J96.01 Acute respiratory failure with hypoxia; N39.0 Urinary tract infection, site not specified; G82.20 Paraplegia, unspecified; J98.11 Atelectasis; L89.90 Pressure ulcer of unspecified site, unspecified stage; Z68.24 Body mass index [BMI] 24.0-24.9, adult; E78.5 Hyperlipidemia, unspecified; I11.0 Hypertensive heart disease with heart failure; I25.10 Atherosclerotic heart disease of native coronary artery without angina pectoris; J44.9 Chronic obstructive pulmonary disease, unspecified; Z82.49 Family history of ischemic heart disease and other diseases of the circulatory system; Z90.710 Acquired absence of both cervix and uterus; Z93.3 Colostomy status
CPT/HCPCS: 31500; 31625; 32555; 36415; 36569; 36600; 51702; 71045; 71275; 74176; 76604; 76942; 80048; 80053; 80202; 81001; 82805; 82962; 83605; 83735; 83880; 83986; 84484; 85007; 85025; 85027; 85610; 85730; 87040; 87070; 87081; 87205; 89051; 93005; 93306; 93970; 93971; 94002; 94003; 94640; 94660; 94668; 96372; 96374; 96375; 97163; 99291; A6257; C9113; J0171; J0330; J0696; J2001; J2250; J2543; J3480; J7060

== ENCOUNTER 2018-09-12 10:45 | Inpatient (IN) | payer MEDICARE, BC | END 2018-09-14 16:02 | disposition home or self-care (01) | LOC: EAST 10:45 | DX: B96.5 Pseudomonas (aeruginosa) (mallei) (pseudomallei) as the cause of diseases classified elsewhere (principal); E44.1 Mild protein-calorie malnutrition; G82.20 Paraplegia, unspecified; E88.09 Other disorders of plasma-protein metabolism, not elsewhere classified; I10 Essential (primary) hypertension; E03.9 Hypothyroidism, unspecified; Z93.3 Colostomy status ==